=== PATIENT | male | born 1950 | race Caucasian/White ===

== ENCOUNTER → 2016-06-30 | Outpatient (CLI) | payer OTHER ==
--- NOTE | 2016-06-30 13:55 | MR ---
EXAMINATION TYPE: MR lumbar spine wo con DATE OF EXAM: 06/30/2016 1:37 PM COMPARISON: NONE HISTORY: low back pain TECHNIQUE: Multiplanar, multisequence imaging of the lumbar spine is performed without IV contrast. FINDINGS: Sagittal images of the lumbar spine show vertebral body heights to appear satisfactory. Nikko e small Schmorl nodes inferior T12-L2 endplates are noted. There is grade 1 retrolisthesis of L1 on L 2 and L2 on L3. Multilevel disc desiccation is present. There is multilevel mild to moderate disc spa ce narrowing most pronounced at the L1-L2 level. Multilevel small posterior disc herniations are seen in the lumbar spine on sagittal images. The conus medullaris is normal in position and signal ending at mid L1 vertebral body level. The bone marrow signal intensity is overall slightly heterogeneous. Mild anterior multilevel spurring upper lumbar spine is present Axial images at the T12-L1 level is felt to be within normal limits. Axial images at the L1-L2 level show mild to moderate broad disc bulge mildly effacing anterior theca l sac. Bilateral neural foramina are patent. Mild facet degenerative changes are present bilaterally. Axial images at the L2-L3 level show mild to moderate broad disc bulge mildly effacing the anterior t hecal sac with mild left greater than right neural foraminal narrowing, some encroachment lung anteri or inferior margin of left L2 nerve is difficult to exclude on sagittal image 3. Mild facet degenerat emile changes are present bilaterally. Axial images at the L3-L4 level show mild to moderate facet degenerative changes bilaterally. There i s mild to moderate broad disc bulge mildly effacing anterior thecal sac. There is mild to moderate bi lateral neural foraminal narrowing at this level identified. Axial images at L4-L5 level show moderate to advanced facet degenerative changes bilaterally. There i s small central disc protrusion mildly effacing anterior thecal sac. Bilateral neural foramina are gr ossly patent. Axial images at L5-S1 level show moderate facet degenerative changes bilaterally. There is central di sc protrusion mildly effacing anterior thecal sac. Bilateral neural foramina are patent. Some central small simple parapelvic cysts are felt present in both kidneys. IMPRESSION: Multilevel degenerative changes in the lumbar spine as detailed above
== END | disposition home or self-care (01) ==
LOC: RADMRIMAIN 12:53
PROVIDERS: ATTEND Family Medicine
DX: M47.816 Spondylosis without myelopathy or radiculopathy, lumbar region (principal); M47.817 Spondylosis without myelopathy or radiculopathy, lumbosacral region
CPT/HCPCS: 72148